=== PATIENT | male | born 1945 | race Caucasian/White ===

== ENCOUNTER 2019-07-31 09:22 | Emergency (ER) | payer MEDICARE, BC ==
[~2019-07-31] VITALS: Ht 165.1 cm; Wt 80.0 kg
[2019-07-31 09:35] VITALS: BP 154/83
[2019-07-31] MEDS ORDERED: normal saline 1000ML IV soln IVB ONE (09:45)
[2019-07-31] MEDS ORDERED: ondansetron/PF 4mg/2ml inj IV ONE (09:45)
[2019-07-31] MEDS ORDERED: ketorolac trometh. 30mg/ml inj. IV ONE (09:45)
[2019-07-31 09:58] LABS: BASOPHILS % (AUTO) 0.1 % (0-1); EOSINOPHILS % (AUTO) 0 % (0-6); HEMATOCRIT 35.8 % (42.0-52.0); HEMOGLOBIN 12.1 g/dl (14.0-17.9); LYMPHOCYTES # (AUTO) 0.4 X10'3 (1.1-4.8); LYMPHOCYTES % (AUTO) 5.5 % (21-51); MEAN CORPUSCULAR HGB CONC 33.8 g/dL (33.0-36.5); MEAN CORPUSCULAR VOLUME 94.7 FL (78-98); MEAN PLATELET VOLUME 9.1 FL (7.4-10.4); MONOCYTES # (AUTO) 0.2 X10'3 (0-0.9); MONOCYTES % (AUTO) 3.1 % (2-12); NEUTROPHILS # (AUTO) 6.4 X10'3 (1.8-7.7); NEUTROPHILS % (AUTO) 91.3 % (42-75); PLATELET COUNT 158 X10'3 (140-440); RED BLOOD COUNT 3.78 X10'6 (4.70-6.10); RED CELL DISTRIBUTION WIDTH 13.8 % (11.5-14.5)
[2019-07-31] MEDS ORDERED: morphine 4 MG/ML inj SYRINge IV ONE (10:15)
[2019-07-31 10:16] LABS: ALANINE AMINOTRANSFERASE 23 U/L (12-78); ALBUMIN 4.1 G/DL (3.4-5.0); ALBUMIN/GLOBULIN RATIO 1.2 (1.1-1.5); ALKALINE PHOSPHATASE 56 IU/L (46-116); ANION GAP 13 (8-16); ASPARTATE AMINO TRANSFERASE 16 U/L (10-37); BILIRUBIN,TOTAL 0.9 MG/DL (0.1-1.0); BLOOD UREA NITROGEN 32 MG/DL (7-18); BUN/CREATININE RATIO 18.8 (5.4-32.0); CALCIUM 8.9 MG/DL (8.5-10.1); CHLORIDE 104 MMOL/L (99-107); GLUCOSE 152 MG/DL (70-104); LIPASE 80 U/L (73-393); POTASSIUM 4.2 MMOL/L (3.5-5.1); SODIUM 138 MMOL/L (135-145); TOTAL CARBON DIOXIDE 20.8 MMOL/L (24-32); TOTAL PROTEIN 7.5 G/DL (6.4-8.2); eGFR 39 ML/MIN
[2019-07-31 11:02] LABS: CLARITY,URINE CLOUDY (Clear); COLOR,URINE YELLOW (Yellow); GLUCOSE, URINE NEGATIVE (Neg); KETONES,URINE 15 mg/dl (Neg); LEUKOCYTE ESTERASE ,URINE NEGATIVE (Neg); NITRITES, URINE NEGATIVE (Neg); OCCULT BLOOD,URINE LARGE (Neg); PH,URINE 5.5 (4.8-8.0); PROTEIN,URINE NEGATIVE (Neg)
[2019-07-31 11:03] LABS: UA COLLECTION TYPE CLN CATCH MIDSTREAM
[2019-07-31 11:09] LABS: BACTERIA,URINE FEW /HPF (Neg); RBC,URINE 50-100 /HPF (0-2); SQUAMOUS EPITHELIAL CELL,UR MANY /LPF (FEW); WBC,URINE 0-4 /HPF (0-4)
[2019-07-31] MEDS ORDERED: HYDR-4384 PO (11:26)
[2019-07-31] MEDS ORDERED: FLO0.4C PO (11:26)
== END 2019-07-31 11:41 | disposition home or self-care (01) ==
LOC: ER 09:22
DX: N20.0 Calculus of kidney (principal); R11.10 Vomiting, unspecified; Z95.0 Presence of cardiac pacemaker; Z79.899 Other long term (current) drug therapy
CPT/HCPCS: 36415; 74176; 80053; 81001; 83690; 85025; 96361; 96374; 96375; 99284; J1885; J2270; J2405; J7030

== ENCOUNTER 2019-08-05 07:26 | Inpatient (IN) | payer MEDICARE, BC ==
[~2019-08-05] VITALS: Ht 165.1 cm; Wt 81.2 kg
[2019-08-05] VITALS (14 sets, daily range): BP systolic 141–167; BP diastolic 74–85
[~2019-08-05 07:26] MED LIST: FLO0.4C PO; HYDR-4384 PO
--- NOTE | 2019-08-05 07:47 | NUR ---
Patient to room from lobby with steady gait. Patient don gown and given warm blanket. at bedside.
--- NOTE | 2019-08-05 08:09 | NUR ---
Patient ambulated to restroom with steady gait. Urine sample collected and sent to lab.
[2019-08-05 08:37] LABS: CLARITY,URINE SLIGHTLY CLOUDY (Clear); COLOR,URINE YELLOW (Yellow); GLUCOSE, URINE NEGATIVE (Neg); KETONES,URINE NEGATIVE (Neg); LEUKOCYTE ESTERASE ,URINE NEGATIVE (Neg); NITRITES, URINE NEGATIVE (Neg); OCCULT BLOOD,URINE LARGE (Neg); PROTEIN,URINE TRACE mg/dl (Neg)
[2019-08-05 08:38] LABS: UA COLLECTION TYPE CLN CATCH MIDSTREAM
[2019-08-05 08:42] LABS: MUCUS STRANDS MODERATE /LPF (Neg); SQUAMOUS EPITHELIAL CELL,UR FEW /LPF (FEW)
[2019-08-05 08:45] LABS: BACTERIA,URINE FEW /HPF (Neg); COARSE GRANULAR CAST 0-3 /LPF (NEGATIVE); FINE GRANULAR CAST 0-3 /LPF (NEGATIVE); HYALINE CASTS 0-3 /LPF (NEGATIVE); WBC,URINE 0-4 /HPF (0-4)
[2019-08-05 08:49] LABS: BASOPHILS % (AUTO) 0.2 % (0-1); EOSINOPHILS # (AUTO) 0.1 X10'3 (0-0.9); HEMATOCRIT 31.6 % (42.0-52.0); HEMOGLOBIN 10.8 g/dl (14.0-17.9); LYMPHOCYTES # (AUTO) 0.9 X10'3 (1.1-4.8); LYMPHOCYTES % (AUTO) 16.6 % (21-51); MEAN CORPUSCULAR HEMOGLOBIN 31.6 PG (27.0-31.0); MEAN CORPUSCULAR HGB CONC 34.3 g/dL (33.0-36.5); MEAN CORPUSCULAR VOLUME 92.1 FL (78-98); MEAN PLATELET VOLUME 8.3 FL (7.4-10.4); MONOCYTES # (AUTO) 0.9 X10'3 (0-0.9); MONOCYTES % (AUTO) 17.2 % (2-12); NEUTROPHILS # (AUTO) 3.3 X10'3 (1.8-7.7); PLATELET COUNT 152 X10'3 (140-440); RED BLOOD COUNT 3.43 X10'6 (4.70-6.10); RED CELL DISTRIBUTION WIDTH 13.9 % (11.5-14.5); WHITE BLOOD COUNT 5.1 X10'3 (4.5-11.0)
[2019-08-05] MEDS ORDERED: morphine 4 MG/ML inj SYRINge IV ONE ×2 (08:55→10:05)
[2019-08-05] MEDS ORDERED: ondansetron/PF 4mg/2ml inj IV ONE (08:55)
[2019-08-05] MEDS ORDERED: normal saline 1000ML IV soln IVB ONE (08:55)
[2019-08-05 09:11] LABS: ALANINE AMINOTRANSFERASE 28 U/L (12-78); ALBUMIN 2.9 G/DL (3.4-5.0); ALBUMIN/GLOBULIN RATIO 0.7 (1.1-1.5); ALKALINE PHOSPHATASE 57 IU/L (46-116); ANION GAP 11 (8-16); ASPARTATE AMINO TRANSFERASE 20 U/L (10-37); BILIRUBIN,TOTAL 0.6 MG/DL (0.1-1.0); BLOOD UREA NITROGEN 24 MG/DL (7-18); BUN/CREATININE RATIO 11.9 (5.4-32.0); CHLORIDE 100 MMOL/L (99-107); CREATININE 2.01 MG/DL (0.60-1.10); GLUCOSE 145 MG/DL (70-104); POTASSIUM 3.8 MMOL/L (3.5-5.1); SODIUM 136 MMOL/L (135-145); TOTAL CARBON DIOXIDE 25.5 MMOL/L (24-32); TOTAL PROTEIN 7.1 G/DL (6.4-8.2); eGFR 33 ML/MIN
[2019-08-05 09:31] LABS: PLATELET ESTIMATE NORMAL; TOTAL CELLS COUNTED 100
[2019-08-05] MEDS ORDERED: ondansetron/PF 4mg/2ml inj IV PRN ×3 (10:10→19:25)
[2019-08-05] MEDS ORDERED: HYDROcodone/acetaminophen 5mg/325mg tablet PO PRN (10:10)
[2019-08-05] MEDS ORDERED: morphine 2 MG/ML inj. syringe IV PRN ×2 (10:10)
[2019-08-05] MEDS ORDERED: mag hydrox/Alum hydrox/simeth 30ml oral suspension PO PRN (10:10)
[2019-08-05] MEDS ORDERED: acetaminophen 325mg tablet PO PRN (10:10)
[2019-08-05] MEDS ORDERED: magnesium hydroxide 30ml (MOM) UD suspension PO PRN (10:10)
--- NOTE | 2019-08-05 10:39 | NUR ---
Patient resting in bed, declines pain medication at this time. Call light within reach. Patient will call when need of pain medication. at bedside.
[2019-08-05] MEDS ORDERED: OMEP20CA11 PO (11:03)
[2019-08-05] MEDS ORDERED: ATOR80TA PO (11:05)
[2019-08-05] MEDS ORDERED: PIOG15TA8 PO (11:05)
[2019-08-05] MEDS ORDERED: ASPI-1265 PO (11:07)
[2019-08-05] MEDS ORDERED: ZOLP5TAB8 PO (11:07)
[2019-08-05] MEDS ORDERED: LOSA50TA64 PO (11:43)
[2019-08-05] MEDS ORDERED: HYDR-3972 PO (11:45)
[2019-08-05] MEDS ORDERED: FLO0.4C PO (11:45)
[2019-08-05] MEDS: normal saline 1000ml 1,000 ML IV SCH ×2 (12:28→22:04)
[2019-08-05] MEDS ORDERED: ringers solution, lacted 1,000 ML IV SCH ×2 (16:55→19:22)
[2019-08-05] MEDS ORDERED: morphine 4 MG/ML inj SYRINge IV PRN ×4 (16:55→19:25)
[2019-08-05] MEDS ORDERED: proCHLORperazine 10 MG/2 ml inj IV PRN (16:55)
[2019-08-05] MEDS ORDERED: meperidine/PF 25mg/ml syringe IV PRN ×3 (16:55)
--- NOTE | 2019-08-05 18:54 | NUR ---
Patient left to surgery.
[2019-08-05] MEDS ORDERED: sevoflurane 250ml liquid IH ONE (19:23)
[2019-08-05] MEDS ORDERED: labetalol 20mg/4ml (5mg/ml) syringe IV ONE (19:23)
[2019-08-05] MEDS ORDERED: labetalol 20mg/4ml (5mg/ml) syringe IV PRN (19:25)
[2019-08-05] MEDS ORDERED: hydrALAZINE 20mg/ml inj. IV PRN (19:25)
[2019-08-05] MEDS ORDERED: fentaNYL/PF 50MCG/1 ML 2ML syringe IV PRN ×2 (19:25)
[2019-08-05] MEDS ORDERED: fentaNYL/PF 50MCG/1 ML 2ML syringe ONE ×2 (19:28→20:04)
[2019-08-05] MEDS ORDERED: midazolam 2 mg/2 ml injection ONE (19:28)
[2019-08-05] MEDS ORDERED: propofol inj 20 ML IV ONE (19:32)
[2019-08-05] MEDS ORDERED: ceFAZolin 1000mg inj ONE ×2 (19:32)
[2019-08-05] MEDS ORDERED: LIDOcaine 2% (20mg/ml) 5ml vial ONE (19:33)
[2019-08-05] MEDS ORDERED: ondansetron/PF 4mg/2ml inj ONE (19:33)
[2019-08-05] MEDS ORDERED: dexamethasone sod phosphate 4mg/ml inj. ONE (19:37)
[2019-08-05] MEDS ORDERED: metoprolol tartrate 1mg/ml inj IV ONE (20:01)
--- NOTE | 2019-08-05 20:25 | NUR ---
Received from OR via BED , accompanied by Anesthesiologist DR ROBISON and report given by Anesthesiolgist. PATIENT WAKING UP, DENIES PAIN , V/S WNL, CSM INTACT. 20G PIV RUE, SCD ON, NO DRESSINGS NO DRAINAGE OBSERVED.
[2019-08-05] MEDS ORDERED: HYDROcodone/acetaminophen 10/325mg tab PO PRN (20:35)
--- NOTE | 2019-08-05 20:46 | NUR ---
RECEIVED REPORT FROM RECOVERY NURSE ZULEYMA JOHNSON. WILL ASSUME CARE.
--- NOTE | 2019-08-05 20:55 | NUR ---
PATIENT A&OX4, DENIES PAIN, V/S WNL, NEUROVASCULAR CHECKS INTACT, 20G PIV LUE, SCD ON, PATIENT TAKEN TO 345B WITH ALL BELONGINGS AND HOOKED UP TO MONITORS IN ROOM AND REPORT GIVEN TO EBEN JOHNSON WHO HAS TAKEN OVER PATIENT CARE.
[2019-08-05] MEDS ORDERED: zolpidem 5mg tablet PO SCH (21:00)
--- NOTE | 2019-08-05 21:00 | NUR ---
Patient return to room. Patient awake and alert. VSS connected to post-op vitals. SPo2 low 90's (90%-92%). 2L n/c applied to patient,Spo2 94% on 2L.Mild bloody drainage noted from his meatus and leaked on to his gown. Gown changed. Will continue with care.
[2019-08-06] VITALS: BP 158/83
[2019-08-06 00:45] VITALS: BP 149/92
[2019-08-06] MEDS ORDERED: LIDOcaine 2% 10ml TOPICAL JELLY (Urojet) MM ONE (02:05)
--- NOTE | 2019-08-06 03:00 | NUR ---
Patient attempted to void this morning at 0230 was unable. Patient complaining of discomfort, ABD is distended. Bladder scan showed 740ml Dr. Pham notified. Order for straight cath. Unsuccessful straight cath. notified again for use of Coude with urojet. Successful with Coude. Return 750ml of dark urine with some small blood clots.
[2019-08-06 04:00] VITALS: BP 142/81
[2019-08-06 05:22] LABS: ALBUMIN 2.5 G/DL (3.4-5.0); ANION GAP 9 (8-16); BLOOD UREA NITROGEN 27 MG/DL (7-18); BUN/CREATININE RATIO 17.5 (5.4-32.0); CALCIUM 8.4 MG/DL (8.5-10.1); CHLORIDE 106 MMOL/L (99-107); CREATININE 1.54 MG/DL (0.60-1.10); GLUCOSE 234 MG/DL (70-104); POTASSIUM 4.1 MMOL/L (3.5-5.1); SODIUM 138 MMOL/L (135-145); TOTAL CARBON DIOXIDE 22.6 MMOL/L (24-32); eGFR 44 ML/MIN
[2019-08-06] MEDS: normal saline 1000ml 1,000 ML IV SCH (06:08)
--- NOTE | 2019-08-06 06:17 | NUR ---
Patient in room [facility]. I have received report from ELIZABETH Nj and had the opportunity to ask questions and assume patient care.
[2019-08-06 07:37] LABS: BASOPHILS % (AUTO) 0.2 % (0-1); EOSINOPHILS % (AUTO) 0 % (0-6); HEMATOCRIT 29.5 % (42.0-52.0); HEMOGLOBIN 10.1 g/dl (14.0-17.9); LYMPHOCYTES # (AUTO) 0.3 X10'3 (1.1-4.8); LYMPHOCYTES % (AUTO) 10.8 % (21-51); MEAN CORPUSCULAR HEMOGLOBIN 31.5 PG (27.0-31.0); MEAN CORPUSCULAR HGB CONC 34.4 g/dL (33.0-36.5); MEAN CORPUSCULAR VOLUME 91.6 FL (78-98); MONOCYTES # (AUTO) 0.3 X10'3 (0-0.9); MONOCYTES % (AUTO) 8.1 % (2-12); NEUTROPHILS # (AUTO) 2.6 X10'3 (1.8-7.7); NEUTROPHILS % (AUTO) 80.9 % (42-75); RED BLOOD COUNT 3.22 X10'6 (4.70-6.10); RED CELL DISTRIBUTION WIDTH 13.5 % (11.5-14.5); WHITE BLOOD COUNT 3.2 X10'3 (4.5-11.0)
[2019-08-06 07:48] LABS: MEAN PLATELET VOLUME 8.9 FL (7.4-10.4); PLATELET COUNT 157 X10'3 (140-440)
[2019-08-06 08:00] VITALS: BP_SYST 153; BP_SYST 187; BP_DIAS 130; BP_DIAS 86
[2019-08-06] MEDS ORDERED: pioglitazone 15mg tablet PO SCH (08:00)
[2019-08-06] MEDS ORDERED: aspirin 81mg tab.chew PO SCH (08:00)
[2019-08-06] MEDS ORDERED: losartan 50mg tablet PO SCH (08:00)
[2019-08-06] MEDS ORDERED: tamsulosin 0.4mg capsule PO SCH (08:00)
--- NOTE | 2019-08-06 09:04 | NUR ---
Pt c/o extreme discomfort and inability to urinate. Pt bladder scanned with Dr Cosby at bedside, residual volume 834ml. Received orders to place beck cath. Beck catheter placed at 0850, pt tolerated well. Several blood clots and dark arpit urine immediately began draining. Pt stated immediate relief. Will continue to monitor.
[2019-08-06 11:00] VITALS: BP 154/81
[2019-08-06] MEDS ORDERED: CIPR-260 PO (13:25)
--- NOTE | 2019-08-06 13:45 | NUR ---
Pt discharge to home with all belongings, pt left discharge instructions folder on sink in room. present during discharge instructions, education provided on how to change out leg bag and night bag for beck catheter. states understanding. IV DC'd earlier in shift by pt. New prescription called to [facility] in [place]. Discharge instructions reviewed with instructions to follow up with Dr Blankenship in 2-3 weeks. [facility].
== END 2019-08-06 12:45 | disposition home or self-care (01) | DRG 657 ==
LOC: ER 07:27 → SUR 3N 13:12
PROVIDERS: ADMIT Internal Medicine; ATTEND Internal Medicine
PROC: 0T778DZ Dilation of Left Ureter with Intraluminal Device, Via Natural or Artificial Opening Endoscopic (ICD-10-PCS; 2019-08-05)
PROC: 0TBB8ZX Excision of Bladder, Via Natural or Artificial Opening Endoscopic, Diagnostic (ICD-10-PCS; 2019-08-05)
PROC: 0TC78ZZ Extirpation of Matter from Left Ureter, Via Natural or Artificial Opening Endoscopic (ICD-10-PCS; principal; 2019-08-05 19:23)
DX: C67.9 Malignant neoplasm of bladder, unspecified (principal); N13.2 Hydronephrosis with renal and ureteral calculous obstruction; N17.9 Acute kidney failure, unspecified; E11.9 Type 2 diabetes mellitus without complications; E78.00 Pure hypercholesterolemia, unspecified; E78.5 Hyperlipidemia, unspecified; I10 Essential (primary) hypertension; N40.1 Benign prostatic hyperplasia with lower urinary tract symptoms; R33.8 Other retention of urine; Z79.82 Long term (current) use of aspirin; Z79.899 Other long term (current) drug therapy; Z87.442 Personal history of urinary calculi; Z95.0 Presence of cardiac pacemaker
CPT/HCPCS: 36415; 80048; 80053; 81001; 82948; 85025; 85610; 87081; 88300; 88305; 96374; 96375; 96376; 99285; A4402; A4618; A7000; C1769; C2617; G0378; J0690; J1100; J2001; J2250; J2270; J2405; J2704; J3010; J3490; J7030; J7120

== ENCOUNTER 2019-08-09 19:50 | Emergency (ER) | payer MEDICARE, BC ==
[~2019-08-09] VITALS: Ht 165.1 cm; Wt 84.0 kg
[~2019-08-09 19:50] MED LIST changes: +ASPI-1265 PO; +ATOR80TA PO; +CIPR-260 PO; +HYDR-3972 PO; -HYDR-4384 PO; +LOSA50TA64 PO; +OMEP20CA11 PO; +PIOG15TA8 PO; +ZOLP5TAB8 PO
[2019-08-09] MEDS ORDERED: LIDOcaine 2% 10ml TOPICAL JELLY (Urojet) MM ONE (20:40)
[2019-08-09 21:45] VITALS: BP 169/38
== END 2019-08-09 21:46 | disposition home or self-care (01) ==
LOC: ER 19:50
DX: R33.9 Retention of urine, unspecified (principal); Z87.442 Personal history of urinary calculi; Z98.890 Other specified postprocedural states; Z79.82 Long term (current) use of aspirin; Z79.899 Other long term (current) drug therapy
CPT/HCPCS: 51702; 99284